=== PATIENT | female | born 1950 | race Two or more races ===

== ENCOUNTER → 2017-01-27 | Outpatient (CLI) | payer MEDICARE, OTHER ==
--- NOTE | 2017-01-27 12:21 | RAD ---
Indication pain. Supine and upright films of the abdomen were obtained. No prior plain film imaging of the abdomen is available. The visualized lung bases appear clear. There is no free air. The abdominal gas pattern is normal. A large amount of stool is noted in the large bowel. There is a calcification in the pelvis most compatible with a calcified uterine fibroid. IMPRESSION: No acute finding. Large amount of stool in the large bowel
== END | disposition home or self-care (01) ==
LOC: DXRADRC 10:47
PROVIDERS: ATTEND Physician Assistant Medical
DX: K59.00 Constipation, unspecified (principal); N94.89 Other specified conditions associated with female genital organs and menstrual cycle
CPT/HCPCS: 74020